=== PATIENT | female | born 2000 | race Caucasian/White ===

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

== ENCOUNTER 2018-10-14 01:13 | Emergency (ER) | payer SELFPAY ==
[~2018-10-14 01:13] MED LIST changes: +PRED5TAB PO
--- OUTSIDE RECORDS SUMMARY | 2018-10-14 01:21 | XMS REPORT ---
Author Author SAKINA MARTINEZ Organization [facility] Address [address] [place] [address] Care Team Providers Care Shank Faker Name Role Phone SAKINA MARTINEZ Unavailable PROBLEMS Type Condition ICD9-CM Code [id number] Code Onset Dates Condition Status SNOMED Code Problem Slow transit constipation K59.01 Active 74456319 ALLERGIES No Known Allergies ENCOUNTERS Encounter Location Date Diagnosis [facility] [id number] [place] [phone] Apr, Furuncle L02.92 [place] [id number] [place] [address] Mar, Folliculitis L73.9 [place] [address] [address] [id number] [place] [phone] Mar, Slow transit constipation K59.01 [place] [address] [place] [id number] [place] [address] Jan, Nexplanon removal Z30.46 ; Encounter for initial prescription of injectable contraceptive Z30.013 ; Screen for sexually transmitted diseases Z11.3 and Encounter for Depo-Provera contraception Z30.42 [facility] [address] [id number] [id number] Sep, [facility] [address] [facility] [address] [id number] [phone] Jul, Encounter for other contraceptive management Z30.8 IMMUNIZATIONS No Known Immunizations SOCIAL HISTORY Never Assessed REASON FOR VISIT bug bite- on RT inner thigh. Was seen a week ago for this, but the redness has gotten worse again. MADELIN Swartz PLAN OF CARE Activity Details Follow Up prn Reason: Pending Test CULTURE, AEROBIC Future/Pending Procedure I & D SIMPLE ABSCESS VITAL SIGNS Height 62 in 2018-04-18 Weight 174.5 lbs 2018-04-18 Temperature 98.9 degrees Fahrenheit 2018-04-18 Heart Rate 94 bpm 2018-04-18 Respiratory Rate 18 2018-04-18 BMI 31.91 kg/m2 2018-04-18 Blood pressure systolic 118 mmHg 2018-04-18 Blood pressure diastolic 64 mmHg 2018-04-18 MEDICATIONS Medication Instructions Dosage Frequency Start Date End Date Duration Status Doxycycline Hyclate 100 mg Orally twice a day 1 capsule 12h Apr, Apr, 10 day(s) Active MiraLax - Orally Once a day 6 capfuls in 32 ounces of liquid of choice then 1 capful once daily 24h Mar, Active RESULTS No Results PROCEDURES Procedure Date Ordered Result Body Site CULTURE, BACTERIA, OTHER Apr 18, 2018 DRAINAGE OF SKIN ABSCESS Apr 18, 2018 INSTRUCTIONS MEDICATIONS ADMINISTERED No Known Medications MEDICAL (GENERAL) HISTORY Type Description Date Surgical History tonsillectomy 2004
--- OUTSIDE RECORDS SUMMARY | 2018-10-14 01:21 | XMS REPORT ---
Author Author SOL HERNÁNDEZ Organization [facility] Address [address] [place] [address] Care Team Providers Care Molecular Spectroscopist Name Role Phone SOL HERNÁNDEZ Unavailable PROBLEMS Type Condition ICD9-CM Code [id number] Code Onset Dates Condition Status SNOMED Code Problem Slow transit constipation K59.01 Active 14900179 ALLERGIES No Known Allergies ENCOUNTERS Encounter Location Date Diagnosis [facility] [id number] [place] [phone] Mar, Folliculitis L73.9 [facility] [address] [place] [address] Mar, Slow transit constipation K59.01 [facility] [address] [place] [address] Jan, Nexplanon removal Z30.46 ; Encounter for initial prescription of injectable contraceptive Z30.013 ; Screen for sexually transmitted diseases Z11.3 and Encounter for Depo-Provera contraception Z30.[address] [id number] [id number] Sep, [address] [id number] [id number] Jul, Encounter for other contraceptive management Z30.8 IMMUNIZATIONS No Known Immunizations SOCIAL HISTORY Never Assessed REASON FOR VISIT Bite right inner thigh x 3 days, has increased in size and redness since last night melly reyes PLAN OF CARE Activity Details Follow Up prn Reason: VITAL SIGNS Height 62 in 2018-04-05 Weight 173.2 lbs 2018-04-05 Temperature 98.8 degrees Fahrenheit 2018-04-05 Heart Rate 72 bpm 2018-04-05 Respiratory Rate 20 2018-04-05 BMI 31.68 kg/m2 2018-04-05 Blood pressure systolic 112 mmHg 2018-04-05 Blood pressure diastolic 62 mmHg 2018-04-05 MEDICATIONS Medication Instructions Dosage Frequency Start Date End Date Duration Status MiraLax - Orally Once a day 6 capfuls in 32 ounces of liquid of choice then 1 capful once daily 24h 09 Mar, 2018 Active Bactrim DS 800-160 MG Orally Twice a day 1 tablet 12h Mar,Mar 7 days Active RESULTS No Results PROCEDURES No Known procedures INSTRUCTIONS MEDICATIONS ADMINISTERED No Known Medications MEDICAL (GENERAL) HISTORY Type Description Date Surgical History tonsillectomy 2004
--- OUTSIDE RECORDS SUMMARY | 2018-10-14 01:21 | XMS REPORT ---
Author Author OPAL ROLDAN [facility] Address [address] [place] [address] Care Team Providers Care Child Welfare Caseworker Name Role Phone YULI OPAL Unavailable PROBLEMS Type Condition ICD9-CM Code IUU72-XH Code Onset Dates Condition Status SNOMED Code Problem Slow transit constipation K59.01 Active [id number] ALLERGIES No Information ENCOUNTERS Encounter Location Date Diagnosis [place] [address] [phone] Apr, Encounter for Depo-Provera contraception Z30.42 [place] [address] [address] Apr, Furuncle L02.92 [place] [address] [place] [id number] [place] [address] Mar, Folliculitis L73.[address] [address] Mar, Slow transit constipation K59.01 [place] [address] [place] [address] [id number] [place] [phone] Jan, Nexplanon removal Z30.46 ; Encounter for initial prescription of injectable contraceptive Z30.013 ; Screen for sexually transmitted diseases Z11.3 and Encounter for Depo-Provera contraception Z30.42 [facility] [address] [id number] [place] [id number] Sep, [facility] [address] [id number] [place] [id number] Jul, Encounter for other contraceptive management Z30.8 IMMUNIZATIONS Vaccine Route Administration Date Status DEPO PROVERA (150 MG/ML) IM Intramuscular Apr 26, 2018 Administered SOCIAL HISTORY Never Assessed REASON FOR VISIT Depo Provera injection Malorie Ramirez MA PLAN OF CARE Activity Details Follow Up 3 Months Reason: Pending Test TEST, URINE (IN HOUSE) VITAL SIGNS MEDICATIONS Unknown Medications RESULTS Name Result Date Reference Range TEST, URINE (IN HOUSE) 2018-04-26 RESULTS negative Lot # [id number] Control + Exp date 09/2019 PROCEDURES Procedure Date Ordered Result Body Site URINE TEST Apr 26, 2018 DEPO PROVERA (150 MG/ML) Apr 26, 2018 THER/PROPH/DIAG INJ, SC/IM Apr 26, 2018 INSTRUCTIONS MEDICATIONS ADMINISTERED No Known Medications MEDICAL (GENERAL) HISTORY Type Description Date Surgical History tonsillectomy 2004
--- OUTSIDE RECORDS SUMMARY | 2018-10-14 01:22 | XMS REPORT ---
Author Author SAKINA MARTINEZ Organization [facility] [place] Address [address] [place] [address] Care Team Providers Care Gold Marker Name Role Phone SAKINA MARTINEZ Unavailable PROBLEMS Unknown Problems ALLERGIES No Known Allergies ENCOUNTERS Encounter Location Date Diagnosis [facility] [place] [address] [facility] [id number] [address] Jan, Nexplanon removal Z30.46 ; Encounter for initial prescription of injectable contraceptive Z30.013 ; Screen for sexually transmitted diseases Z11.3 and Encounter for Depo-Provera contraception Z30.42 [facility] [address] [id number] [phone] Sep, [facility] [address] [id number] [phone] Jul, Encounter for other contraceptive management Z30.8 IMMUNIZATIONS Vaccine Route Administration Date Status DEPO PROVERA (150 MG/ML) IM Intramuscular Feb 08, 2018 Administered SOCIAL HISTORY Never Assessed REASON FOR VISIT Implanon removal-Frank, Pt states she would like control, but is not sure what kind., Consent signed PLAN OF CARE Activity Details Follow Up 3 months/1 year Reason: Future/Pending Procedure NEXPLANON REMOVAL VITAL SIGNS Height 62 in 2018-02-08 Weight 181.9 lbs 2018-02-08 Temperature 98.1 degrees Fahrenheit 2018-02-08 Heart Rate 79 bpm 2018-02-08 Respiratory Rate 18 2018-02-08 BMI 33.27 kg/m2 2018-02-08 Blood pressure systolic 116 mmHg 2018-02-08 Blood pressure diastolic 74 mmHg 2018-02-08 MEDICATIONS Medication Instructions Dosage Frequency Start Date End Date Duration Status Implanon 68 MG Active Depo-Provera 150 MG/ML Intramuscular [id number] 1 ml Jan, Feb, 12 Weeks Active RESULTS Name Result Date Reference Range TEST, URINE (IN HOUSE) 2018-02-08 RESULTS neg Lot # [id number] Control + Exp date 08/2019 GC/CHLAM URINE (STATE) 2018-02-08 CHLAMYDIA neg GC neg PROCEDURES Procedure Date Ordered Result Body Site URINE TEST Feb 08, 2018 No Charge Feb 08, 2018 THER/PROPH/DIAG INJ, SC/IM Feb 08, 2018 DEPO PROVERA (150 MG/ML) Feb 08, 2018 REMOVE DRUG IMPLANT DEVICE Feb 08, 2018 INSTRUCTIONS MEDICATIONS ADMINISTERED No Known Medications MEDICAL (GENERAL) HISTORY Type Description Date Surgical History tonsillectomy 2004
--- OUTSIDE RECORDS SUMMARY | 2018-10-14 01:22 | XMS REPORT ---
Author Author JOLYNN ELISE Organization [facility] Address [address] [place] [address] Care Team Providers Care Video Coordinator Name Role Phone JOLYNN ELISE Unavailable PROBLEMS Unknown Problems ALLERGIES No Known Allergies ENCOUNTERS Encounter Location Date Diagnosis [facility] [id number] [place] [phone] Sep, [facility] [address] [id number] [place], [place] [phone] Jul, Encounter for other contraceptive management Z30.8 IMMUNIZATIONS No Known Immunizations SOCIAL HISTORY Never Assessed REASON FOR VISIT Nexplanon removal, [facility] PL[facility] OF CARE Activity Details Follow Up prn - will contact when nexplanon comes in Reason: VITAL SIGNS Height 62 in 2017-08-09 Weight 174.5 lbs 2017-08-09 Temperature 98.5 degrees Fahrenheit 2017-08-09 Heart Rate 86 bpm 2017-08-09 Respiratory Rate 18 2017-08-09 Oximetry 99 % 2017-08-09 BMI 31.91 kg/m2 2017-08-09 Blood pressure systolic 139 mmHg 2017-08-09 Blood pressure diastolic 81 mmHg 2017-08-09 MEDICATIONS Unknown Medications RESULTS No Results PROCEDURES No Known procedures INSTRUCTIONS MEDICATIONS ADMINISTERED No Known Medications MEDICAL (GENERAL) HISTORY Type Description Date Surgical History tonsillectomy 2004
--- OUTSIDE RECORDS SUMMARY | 2018-10-14 01:22 | XMS REPORT ---
Author Author JOLYNN ELISE Organization [facility] [place] Address [address] [place] [address] Care Team Providers Care Serologist Name Role Phone JOLYNN ELISE Unavailable PROBLEMS Unknown Problems ALLERGIES No Information ENCOUNTERS Encounter Location Date Diagnosis [facility] [address] [address] [id number] [place], [place] [phone] Sep, [facility] [address] [id number] [place] [phone] Jul, Encounter for other contraceptive management Z30.8 IMMUNIZATIONS No Known Immunizations SOCIAL HISTORY Never Assessed REASON FOR VISIT Nexplanon (upset) PLAN OF CARE VITAL SIGNS MEDICATIONS Unknown Medications RESULTS No Results PROCEDURES No Known procedures INSTRUCTIONS MEDICATIONS ADMINISTERED No Known Medications MEDICAL (GENERAL) HISTORY Type Description Date Surgical History tonsillectomy 2005
--- NOTE | 2018-10-14 03:07 | NUR ---
MOTHER PRESENTS TO ED REGISTRATION DESK STATING THEY HEARD HELICOPTER AND MX AMBULANCES COMING INTO ER AND HAVE DECIDED TO LEAVE.
== END 2018-10-14 03:07 | disposition left against medical advice (07) ==
LOC: EDUNIT# 01:13 → ER 01:17
DX: M79.601 Pain in right arm (principal); M79.602 Pain in left arm